=== PATIENT | female | born 1975 | race Caucasian/White ===

== ENCOUNTER 2023-10-12 08:08 | Emergency (ER) | payer OTHER, SELFPAY ==
[2023-10-12 08:15] VITALS: BP 113/71; PULSE 115; RESP 17; TEMP 36.8; O2SAT 98; BMI 20.1
--- NOTE | 2023-10-12 08:25 | ED_ITS ---
HPI - General Adult General Chief complaint: Unspecified Complaint, Adult Stated complaint: hives on face, nausea Time Seen by Provider: 10/12/23 08:14 History of Present Illness HPI narrative: Pt is on a medication she states says, she may be sensitive to potassium. She ate a banana this morning and her face broke out and she is nauseous . her breathing is fine, no issues with taking a deep breath. 48-year-old woman presenting to the emergency department with concern of a rash and likely reaction to a banana. No new medications but does take lisinopril and atorvastatin. Underlying history of CVA sometime ago. She is not having sensation of throat closure and is not having difficulty breathing. Ate a banana on her way to work today and developed this primarily facial rash including feeling nauseated mild abdominal cramps, and a little lightheaded. I note her to be tachycardic on arrival. Does have a history of apparently a similar reaction to a banana some months ago. She reports low blood pressure during that time as well. Has not taken any medication for this reaction yet today. No other exposures identified. Taste of salt also in her mouth. Does have a chronic pain and notes that her neck in particular is feeling rather tight. Related Data Home Medications ?Medication ?Instructions ?Recorded ?Confirmed estradiol 10 mcg vaginal tablet 10 mcg vaginal DAILY 10/12/23 10/12/23 (Vagifem) Allergies Allergy/AdvReac Type Severity Reaction Status Date / Time banana AdvReac Severe rash Uncoded 10/12/23 08:19 Review of Systems Status of ROS: Reports: 6 or more systems reviewed and unremarkable except as noted in History and below Exam Narrative: Exam Narrative: Pleasant. Speaking fluidly. Easily. She is breathing without difficulty and lungs are clear. There is no stridor. Oropharynx is unremarkable. Skin is warm and dry. Mild urticarial-type eruptions over her face. Not particularly well demarcated. Upper chest looks to be little involved as well. Const: Vital Signs, click to edit/add: Vital Signs - 24 hr 10/12/23 08:15 Temperature 98.3 F Pulse Rate [Right Pulse Oximeter] 115 H Respiratory Rate 17 Blood Pressure [Ri ght Upper Arm] 113/71 Pulse Oximetry 98 Oxygen Delivery Me thod Room Air Documenting provider has reviewed patient's vital signs: yes Course Vital Signs Vital signs: Initial Vital Signs Temperature 98.3 F 10/12/23 08:15 Temperature Source Temporal Artery Scan 10/12/23 08:15 Pulse Rate 115 H 10/12/23 08:15 Pulse Rhythm Regular 10/12/23 08:15 Pulse Strength 3+ Normal 10/12/23 08:15 Respiratory Rate 17 10/12/23 08:15 Blood Pressure 113/71 10/12/23 08:15 Blood Pressure Mean 85 10/12/23 08:15 Blood Pressure Position Sitting 10/12/23 08:15 Pulse Oximetry 98 10/12/23 08:15 Oxygen Delivery Method Room Air 10/12/23 08:15 Vital Signs Temperature 98.3 F 10/12/23 08:15 Pulse Rate 115 H 10/12/23 08:15 Respiratory Rate 17 10/12/23 08:15 Blood Pressure 113/71 10/12/23 08:15 Pulse Oximetry 98 10/12/23 08:15 Oxygen Delivery Method Room Air 10/12/23 08:15 Temperature 98.3 F 10/12/23 08:15 Pulse Rate 115 H 10/12/23 08:15 Respiratory Rate 16 10/12/23 09:04 Blood Pressure 103/67 10/12/23 09:04 Pulse Oximetry 98 10/12/23 09:04 Oxygen Delivery Method Room Air 10/12/23 09:04 Medications Administered Medications: Discontinued Medications Generic Name Dose Route Start Last Admin Trade Name Freq PRN Reason Stop Dose Admin Diphenhydramine HCl 50 mg 10/12/23 08:37 10/12/23 08:42 Diphenhydramine 25 Mg Capsule PO 10/12/23 08:38 50 mg ONCE ONE Administration Ibuprofen 800 mg 10/12/23 08:57 10/12/23 09:05 Ibuprofen 400 Mg Tablet PO 10/12/23 08:58 800 mg ONCE ONE Administration Ondansetron HCl 4 mg 10/12/23 08:37 10/12/23 08:42 Ondansetron Odt 4 Mg Tab PO 10/12/23 08:38 4 mg ONCE ONE Administration Prednisone 40 mg 10/12/23 09:07 10/12/23 09:13 Prednisone 20 Mg Tablet PO 10/12/23 09:08 40 mg ONCE ONE Administration Medical Decision Making MDM Narrative Medical decision making narrative: This appears to have been allergic reaction. Only consistent factor is identified as bananas. Not demonstrating a cough or other reaction that might associated with lisinopril typically. Concerning is the nausea or abdominal cramping. I did offer IV versus oral but other than some mild tachycardia does appear to be otherwise well here in the emergency department and can probably be managed orally. Ordered for diphenhydramine and Zofran. Will monitor closely. Addition yet of prednisone prior to anticipated departure. Notes marked improvement after Zofran in particular. Effect of diphenhydramine likely not seen yet. She is however having increased neck pain. Prior injury here and seems to be leading to a lot of muscle tension in the region. Requesting ibuprofen. Ordered. See patient discharge plan for further discussion Discharge Plan Discharge Clinical Impression: Allergic reaction Patient Disposition: Home, Self-Care Condition: Improved Instructions: Allergy Testing (ED) Additional Instructions: It is hard for me say that banana is not related in this apparent reaction but surely you have had it on numerous occasions in other foods since the last apparent reaction. I would appear however that you need to avoid whole bananas at this point. Might consider getting formally tested for allergies. Stay well-hydrated. Prescribing prednisone for the next 2-3 days. From [facility]. Take another dose mid afternoon and then twice daily over the following 2 days (modified from the [facility] prescription) Can take diphenhydramine for breakthrough rash or itch over the next few days. If this occurs in the future would take diphenhydramine and closely monitor. If clearly worsening or any indication of difficulty breathing, throat tightness or tightness in your chest, would present to the emergency department. Activity Level: No Restrictions Discharge Diet: Regular Prescriptions: No Action estradiol [Vagifem] 10 mcg tablet 10 mcg vaginal DAILY Follow Up/Referrals: Provider,Not a Local [Primary Care Provider] - Stand Alone Forms: [employer] Info Instructions
[2023-10-12] MEDS: diphenhydrAMINE 25 MG CAPSULE 50 MG PO (08:42)
[2023-10-12] MEDS: ONDANSETRON ODT 4 MG TAB PO (08:42)
[2023-10-12 09:04] VITALS: BP 103/67; RESP 16; O2SAT 98
[2023-10-12] MEDS: IBUPROFEN 400 MG TABLET 800 MG PO (09:05)
[2023-10-12] MEDS: predniSONE 20 MG TABLET 40 MG PO (09:13)
== END 2023-10-12 09:40 | disposition home or self-care (01) ==
PROVIDERS: Emergency Provider Family Medicine
DX: R21 Rash and other nonspecific skin eruption (principal); T78.1XXA Other adverse food reactions, not elsewhere classified, initial encounter
CPT/HCPCS: 99283; 99284; A9270; J7512

== ENCOUNTER 2024-04-26 10:58 | Emergency (ER) | payer OTHER, SELFPAY ==
[2024-04-26 11:25] VITALS: BP 128/85; PULSE 103; RESP 20; TEMP 36.9; O2SAT 98; BMI 21.4
--- NOTE | 2024-04-26 11:31 | ED.GENADULT ---
HPI - General Adult General Chief complaint: Neck Injury/Pain Stated complaint: WC - box fell on head/neck Time Seen by Provider: 04/26/24 11:31 History of Present Illness HPI narrative: hx of neck injury had injection on wednesday and neck was finally feeling good since injuy in 2017. 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 pain to both sides of neck and running up back of neck. sent here from urgent care. 49-year-old woman presenting to the emergency department with concern of severe neck pain. Has struggled with chronic neck pain finally receiving an injection 2 days ago and was feeling improved. I believe has a C2 area disc herniation. This morning in her work capacity in this facility a 30 lb box fell onto the upper posterior aspect of her head causing her to flex her neck forward. There was no loss of consciousness. Per recommendations by health insurance was directed to urgent care initially who directed her back to the emergency department. She is having intense pain along both sides of her neck and is very disappointed in these developments considering recent improvement. She is not experiencing radicular symptoms into her arms. Related Data Home Medications ?Medication ?Instructions ?Recorded ?Confirmed aspirin 81 mg tablet,delayed 81 mg PO QDAY 04/26/24 04/26/24 release atorvastatin 20 mg tablet 20 mg PO DAILY 04/26/24 04/26/24 lisinopril 20 1 tab PO DAILY 04/26/24 04/26/24 mg-hydrochlorothiazide 25 mg tablet Previous Rx's ?Medication ?Instructions ?Recorded hydrocodone 5 mg-acetaminophen 325 1 - 2 tab PO Q4-6H PRN pain #8 tabs 04/26/24 mg tablet prednisone 20 mg tablet 40 mg (2 x 20 mg) PO DAILY 5 days 04/26/24 #10 tabs Allergies Allergy/AdvReac Type Severity Reaction Status Date / Time banana AdvReac Severe rash Uncoded 04/26/24 10:40 Review of Systems Status of ROS: Reports: 6 or more systems reviewed and unremarkable except as noted in History and below Exam Narrative: Exam Narrative: Pleasant. Clearly very uncomfortable. Transitioning stiffly. Cranial nerves 2-12 intact. Pupils are equal. Negative Tavares sign. No fluid apparent at external ear canals. Paracervical musculature is tense into the trapezius. Not with significant midline neck pain or upper back pain. Puncture site of injection is evident at around C6 without surrounding inflammatory changes or swelling. Pain with attempted rotation of the neck Const: Vital Signs, click to edit/add: Vital Signs - 24 hr 04/26/24 11:25 Temperature 98.4 F Pulse Rate [Pulse Oximeter] 103 H Respiratory Rate 20 Blood Pressure [Ri ght Upper Arm] 128/85 Pulse Oximetry 98 Oxygen Delivery Me thod Room Air Documenting provider has reviewed patient's vital signs: yes Course Vital Signs Vital signs: Initial Vital Signs Temperature 98.4 F 04/26/24 11:25 Temperature Source Temporal Artery Scan 04/26/24 11:25 Pulse Rate 103 H 04/26/24 11:25 Respiratory Rate 20 04/26/24 11:25 Blood Pressure 128/85 04/26/24 11:25 Blood Pressure Mean 99 04/26/24 11:25 Blood Pressure Position Sitting 04/26/24 11:25 Pulse Oximetry 98 04/26/24 11:25 Oxygen Delivery Method Room Air 04/26/24 11:25 Vital Signs Temperature 98.4 F 04/26/24 11:25 Pulse Rate 103 H 04/26/24 11:25 Respiratory Rate 20 04/26/24 11:25 Blood Pressure 128/85 04/26/24 11:25 Pulse Oximetry 98 04/26/24 11:25 Oxygen Delivery Method Room Air 04/26/24 11:25 Temperature 98.4 F 04/26/24 11:25 Pulse Rate 103 H 04/26/24 11:25 Respiratory Rate 20 04/26/24 11:25 Blood Pressure 128/85 04/26/24 11:25 Pulse Oximetry 98 04/26/24 11:25 Oxygen Delivery Method Room Air 04/26/24 11:25 Medical Decision Making MDM Narrative Medical decision making narrative: I would suspect primarily secondary muscle spasm from cervical strain. I would suspect that x-ray imaging would be of low use. Without radicular symptoms probably does not need MRI. Intensity of symptoms and history I think would warrant CT imaging. I do not think needs head imaging. She would prefer to defer pain management at this time partly with need to drive. TECHNIQUE: Multiplanar CT examination of the cervical spine was performed without the use of intravenous contrast. INDICATION: Neck pain. Trauma. COMPARISON: None. FINDINGS: Nonspecific reversal of the normal cervical lordosis. No craniocervical dissociation. The vertebral body heights are maintained. No acute fractures or traumatic subluxation. The odontoid process is intact. Multilevel degenerative disc disease, severe C5-6 and C6-7. There is grade 1 degenerative anterolisthesis of C3 on C4. Mild degenerative retrolisthesis of C5 on C6. No high-grade stenosis of the osseous spinal canal. Multilevel facet degeneration, advanced at the left C3-4 facet joint. There is likely moderately severe stenosis of the left C3-4 neural foramina. No large abnormal epidural collections identified. No significant prevertebral soft tissue edema. The visualized lung apices are clear. The thyroid gland is unremarkable. IMPRESSION: 1. No acute fracture or traumatic subluxation of the cervical spine. 2. Multilevel cervical spondylosis, with likely moderately severe left C3-4 neural foraminal stenosis. Did review findings of CT imaging with Ms. Bruce. Discussed options for pain management. See patient discharge plan for further discussion I am sorry this happened to you. I hope the injection continues to take hold. I appreciate that you prefer not to take medications. Consider taking ibuprofen or acetaminophen for pain. Might be good to take 1 of these regularly over the next couple of days. Otherwise prescribing a course of prednisone and [place] if needed for further pain. Medical Records Medical records reviewed: Yes I reviewed the patient's medical records Discharge Plan Discharge Clinical Impression: Cervicalgia, Neck strain, Closed head injury Patient Disposition: Home, Self-Care Condition: Stable Additional Instructions: I am sorry this happened to you. I hope the injection continues to take hold. I appreciate that you prefer not to take medications. Consider taking ibuprofen or acetaminophen for pain. Might be good to take 1 of these regularly over the next couple of days. Otherwise prescribing a course of prednisone and [place] if needed for further pain. Prescriptions: New prednisone 20 mg tablet 40 mg PO DAILY 5 Days Qty: 10 0RF hydrocodone-acetaminophen 5-325 mg tablet 1 - 2 tab PO Q4-6H PRN (Reason: pain) Qty: 8 0RF No Action atorvastatin 20 mg tablet 20 mg PO DAILY lisinopril-hydrochlorothiazide 20-25 mg tablet 1 tab PO DAILY aspirin 81 mg tablet,delayed release (DR/EC) 81 mg PO QDAY Follow Up/Referrals: Provider,Not a Local [Primary Care Provider] - Stand Alone Forms: [employer] Info Instructions
--- NOTE | 2024-04-26 12:04 | PC.NURSE ---
Spoke with [employer] Larry at risk management for [facility] regarding Workers comp forms. Patient gave staff here a Workers comp form which requires and instant 10-panel drug screen and breath alcohol test. Notified [employer] that we do not perform breathalyzers here and that we do not have a contract with [facility] to do urine drug screens. Asked if they were able to send their own kit and paperwork to perform this test on patient. Per [employer], no need to perform test if supplies are unavailable. Per [employer], Patient can disregard those tests and just take care of herself. We will take care of paperwork later. Patient was notified of this. Patient did not appear to be under the influence during this visit.
--- OUTSIDE RECORDS SUMMARY | 2024-04-26 15:39 | XMS_ITS | Clinical Summary ---
Author Organization [facility] Address [address] [place] [address] Care Team Providers Care Audio/Video Technician Name Role Phone Hillary Gregg MD Primary Care Provider [phone] Source Comments You are receiving this document as you are listed as the primary care provider,follow-up provider, or the patient has been referred to you for consultation.This is in compliance with the Medicare and[facility] EHR Incentive Program,which states Providers who transition their patient to another setting of careor provider of care or refers their patient to another provider of care shouldprovide summary care record for each transition of care or referral. [facility] Allergies No known active allergies Medications Medication Sig Dispensed Refills Start Date End Date Status XEOMIN 100 units SOLR Inject 100 units of Xeomin IM every 90 days for dx: Cervical Dystonia with 1 refill 1 Each 1 12/03/2021 Active Additional Information Patient not taking.Reported on 02/16/2022 gabapentin (NEURONTIN) 100 MG capsule Take 1 Capsule (100 mg) by mouth daily at bedtime. For 2-3 weeks, may increase to 2 caps PO QHS thereafter. 60 Capsule 3 02/16/2022 Active gabapentin (NEURONTIN) 300 MG capsule Take 1 Capsule (300 mg) by mouth daily at bedtime. 30 Capsule 03/02/2023 Active magnesium oxide (MAG-OX) 400 MG tablet Take 1 Tablet (400 mg) by mouth daily. Active drug not in computer Odalis supplement Active aspirin (ASPIRIN LOW DOSE) 81 MG chewable tablet Chew and swallow 1 Tablet (81 mg) by mouth daily. 90 Tablet 05/17/2023 Active atorvastatin (LIPITOR) 20 MG tablet TAKE 1 TABLET BY MOUTH EVERY DAY 90 Tablet 3 06/15/2023 Active estradiol 10 MCG TABS vaginal tablet Use 1 tab nightly for 6 weeks then 2-3x/week from there Do not start before July 01, 2023. 90 Tablet 3 07/01/2023 Active lisinopril-hydroCHL OROthiazide (PRINZIDE) 20-25 MG tabletIndications:E ssential hypertension (HRC) take 1 tablet by mouth every day 90 Tablet 2 09/10/2023 Active venlafaxine (EFFEXORXR) 37.5 MG 24 hour release capsule take 1 capsule by mouth every day 90 Capsule 09/08/2023 Active Active Problems Problem Noted Date Diagnosed Date Essential hypertension 12/23/2020 Other hyperlipidemia 12/23/2020 Cervical spine pain 05/23/2019 History of embolic stroke 05/29/2015 Immunizations Name Administration Dates Next Due Fluzone Qiv Multidose Vial 0.25 (6-35 Mos) 12/25 Influenza IIV4 (Quadrivalent) 0.5mL (31072) 12/29,12/24/2021,04/27/2019 Donovan COVID-19 Vaccine 11/01/2020 Pfizer Bivalent 12+ 12/24/2021 Pfizer COVID-19 12+ 01/25/2023 Pfizer Monovalent 12+ Purple Top 04/11/2021 Family History Medical History Relation Name Comments Cancer, Cervical Maternal Grandmother Relation Name Status Comments Maternal Grandmother Social History Tobacco Use Types Packs/Day Years Used Date Smoking Tobacco: Never Smokeless Tobacco: Never Alcohol Use Standard Drinks/Week Comments Yes 0 (1 standard drink = 0.6 oz pur e alcohol) Social PHQ-2 Answer Date Recorded PHQ-2 Score 0 01/30/2019 Sex and Gender Information Value Date Recorded Sex Assigned at Not on file Gender Identity Not on file Sexual Orientation Not on file Last Filed Vital Signs Vital Sign Reading Time Taken Comments Blood Pressure 122/76 06/14/2023 2:30 PM CDT Pulse 83 06/14/2023 2:30 PM CDT Temperature 38.1 C (100.6 F) 03/02/2023 8:04 AM FINISH OFF OPERATOR Respiratory Rate 22 03/02/2023 8:04 AM FINISH OFF OPERATOR Oxygen Saturation 97% 03/02/2023 8:04 AM FINISH OFF OPERATOR Inhaled Oxygen Concentration - - Weight 67.6 kg (149 lb) 06/14/2023 2:30 PM CDT Height 175.3 cm (5' 9) 05/14/2023 2:44 PM FINISH OFF OPERATOR Body Mass Index 22 05/14/2023 2:44 PM FINISH OFF OPERATOR Plan of Treatment Health Maintenance Due Date Last Done Comments Colon Cancer Screening Plan Due 1974 Hep C Screening (Preventive Services) 1974 HIV Screening (Preventive Services) 1990 DTaP/Tdap/Td (1 - Tdap) 1993 HepB (1) 1993 Adult Preventive Visit 02/16/2023 02/16/2022, 2019 Mammogram 03/03/2023 03/03/2022, 03/15/2020 COVID-19 Vaccine ( season) 2023 01/25/2023, 12/24/2021, 04/11/2021, Additional history exists Influenza (#1) 2023 01/25/2023, 11/28, 12/25/2020, Additional history exists Zoster/Shingles (1 of 2) 02/08/2024 Cervical Cancer Screening 09/18/2024 09/19/2019 Cholesterol 05/14/2028 05/14/2023, 04/30, 08/15/2019 HepA Aged Out No longer eligi ble based on patient's age to complete this topic Hib Aged Out No longer eligi ble based on patient's age to complete this topic IPV (Polio) Aged Out No longer eligi ble based on patient's age to complete this topic MCV4 Aged Out No longer eligi ble based on patient's age to complete this topic Pneumococcal Aged Out No longer eligi ble based on patient's age to complete this topic Procedures Procedure Name Priority Date/Time Associated Diagnosis Comments LIPID PANEL & DIRECT LDL (IF NEEDED) Routine 05/14/2023 3:40 PM FINISH OFF OPERATOR Other hyperlipidemia MM MAMMOGRAM SCREENING BILAT W IMPLANTS W 3D TI W CAD Routine 03/03/2022 2:57 PM FINISH OFF OPERATOR Encounter for screening mammogram for malignant neoplasm of breast PAP TEST Routine 09/19/2019 2:45 PM CDT Screening for malignant neoplasm of cervix from Last 3 Months or Most Recently Relevant to Health Maintenance Results * (ABNORMAL) Lipid Panel and Direct LDL(If Needed) (05/14/2023 3:40 PM FINISH OFF OPERATOR) Cholesterol 232(H) 0 - 199 mg/dL 05/14/2023 7:06 PM FINISH OFF OPERATOR [facility] Triglyceride 106 <=149 mg/dL 05/14/2023 7:06 PM [facility] HDL Cholesterol 78 >=40 mg/dL 05/14/2023 7:06 PM FINISH OFF OPERATOR [facility] LDL, Calculated 133(H) <130 mg/dL 05/14/2023 7:06 PM [facility] Non HDL Chol, Calculated 154 <=159 mg/dL 05/14/2023 7:06 PM [facility] Cholesterol/HDL Ratio 3.0 <=5.0 05/14/2023 7:06 PM [facility] Hours Fasting 0.1 8 - 12 Hours 05/14/2023 7:06 PM FINISH OFF OPERATOR [facility] Blood Venipuncture / Unknown 05/14/2023 3:40 PM FINISH OFF OPERATOR 05/14/2023 3:40 PM FINISH OFF OPERATOR Hillary Gregg MD LAB_1 Performing Organization Address City/State/[facility] Co de Phone Number [facility] [address] [place] [address] * MM Mammogram Screening Bilat W Implants W 3D Ti W CAD (03/03/2022 2:57 PM FINISH OFF OPERATOR) Anatomical Region Laterality Modality Breast Bilateral Mammography Impressions 03/03/2022 4:29 PM FINISH OFF OPERATOR : ACR BI-RADS Category 2: Benign RECOMMENDATION: Follow Up Imaging in 12 months - Bilateral The results and recommendations of this examination will be communicated to the patient. Narrative 03/03/2022 4:29 PM FINISH OFF OPERATOR MM MAMMOGRAM SCREENING BILAT W IMPLANTS W 3D TI W CAD performed on 03/03/22 Compared to: 03/15/2020 MM Mammogram Screening Bilat W Implants W 3D Ti W CAD FINDINGS: Bilateral screening mammogram was performed with the assistance of Computer-Aided Detection and breast tomosynthesis. The breasts have scattered areas of fibroglandular density. There are findings of breast augmentation. There is no radiographic evidence of malignancy. Hillary Gregg MD RAD KIMBER * PAP Test (09/19/2019 2:45 PM CDT) Case Report Pap Case: [id number] Authorizing Provider: Chanel Cheema MD Collected: 09/19/2019 02:45 PM Ordering Location: [facility] Received: 09/19/2019 02:50 PM Practice First Screen: Katya Garcia Specimen: Pap Test, Routine, Cervix/Endocervix 09/27/2019 9:49 AM [facility] Pap Specimen Adequacy Satisfactory for evaluation, endocervical/graham sformation zone component present. 09/27/2019 9:49 AM [facility] Pap Interpretation Negative for intraepithelial lesion or malignancy (NILM). 09/27/2019 9:49 AM [facility] Pap Disclaimer The Pap test is a screening test designed to aid in the detection of cervical cancer and its precursor lesions. It is not a diagnostic procedure and should not be used as the sole means of detecting cervical cancer. Both false-positive and false-negative results may occur. 09/27/2019 9:49 AM [facility] Gross Description The specimen is received in SurePath fixative and properly labeled. 1 Pap-stained SurePath slide is prepared. 09/27/2019 9:49 AM [facility] Embedded Images 0 9:49 AM [facility] Other Specimen Type ENTIRE ENDOCERVIX / Unknown 09/19/2019 2:45 PM CDT 09/19/2019 2:50 PM CDT Comment:LMP: No LMP recorded . Chanel Cheema MD LAB PATHOLOGY [address] [address], [facility] [phone] from Last 3 Months or Most Recently Relevant to Health Maintenance Care Teams Audio/Video Technician Relationship Specialty [place] [address] [place] [address] PCP - General Family Practice 09/13/19
--- OUTSIDE RECORDS SUMMARY | 2024-04-26 15:39 | XMS_ITS | Clinical Summary ---
Author Organization [facility] Address [place], [place] [address] Care Team Providers Care Peace Officer Name Role Phone Ananya Solano MD Primary Care Provider [phone] Allergies No known active allergies Medications aspirin 325 mg tablet Take 1 tablet by mouth once daily with a meal. 1 tablet 0 3 Active ferrous sulfate, 65 mg elemental, tabletIndications: Excessive bleeding in premenopausal period Take 1 tablet by mouth once daily with a meal. 90 tablet 8 Active lisinopril-hydroch lorothiazide, 20-25 mg, (PRINZIDE, ZESTORETIC) 20-25 mg per tabletIndications: Cerebral infarction, unspecified mechanism (HC) TAKE 1 TABLET BY MOUTH EVERY DAY 30 tablet 0 Active atorvastatin (LIPITOR) 10 mg tabletIndications: Cerebral infarction, unspecified mechanism (HC) Take 1 tablet by mouth at bedtime. 90 tablet 0 Active Active Problems Problem Noted Date Diagnosed Date History of embolic stroke 05/29/2015 Resolved Problems Problem Noted Date Diagnosed Date Resolved Date Excessive bleeding in premenopausal period 05/29/2015 01/03/2020 History of 05/29/2015 020 Overview (05/29/2015): x2 CVA (cerebral infarction) 03/22/2013 Family History Medical History Relation Name Comments Good Health Brother good health Stroke Father Cancer Maternal Grandfather brain Cancer Maternal Grandmother cervica l Heart Disease Mother 2 heart valves replaced - on coumadin Unknown Paternal Grandfather Relation Name Status Comments Brother Alive Father Alive Maternal Grandfather Maternal Grandmother Mother Alive Paternal Grandfather Paternal Grandmother Social History Tobacco Use Types Packs/Day Years Used Date Smoking Tobacco: Never Smokeless Tobacco: Never Tobacco Cessation:Counseling Given: Yes Alcohol Use Standard Drinks/Week Comments Yes 0 (1 standard drink = 0.6 oz pur e alcohol) social PHQ-2 Answer Date Recorded PHQ-2 Score 0 05/30/2018 Social Connections Answer Date Recorded Frequency of Communication with Friends and Fami ly Not on file 03/28/2021 Financial Resource Strain Answer Date R ecorded Difficulty of Paying Living Expenses Not on file 03/28/2021 Difficulty of Paying Living Expenses Not on file 03/28/2021 Comments No Sex and Gender Information Value Date Recorded Sex Assigned at Not on file Legal Sex Female 6:29 AM SCREEN VENT BINDER Gender Identity Not on file Sexual Orientation Not on file 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 Not on file Not on file Not on file Obstetrics History Para Term AB IAB SAB Ectopic Multiple Livin g Live Births 2 2 2 Date Outcome GA Total Labor Labor/2nd/3rd Weight Sex Type Anes PTL Amanda A1 A5 Name Clin 1998 CS-LT ranv Living 2 CS-LT ranv Living Last Filed Vital Signs Vital Sign Reading Time Taken Comments Blood Pressure 120/74 11/01/2018 1:43 PM CDT Pulse 92 03/08/2018 2:40 PM SCREEN VENT BINDER Temperature 36.6 C (97.8 F) 03/08/2018 2:40 PM SCREEN VENT BINDER Respiratory Rate 18 03/24/2013 8:00 AM SCREEN VENT BINDER Oxygen Saturation 98% 03/24/2013 8:00 AM SCREEN VENT BINDER Inhaled Oxygen Concentration - - Weight 63.5 kg (140 lb) 11/01/2018 1:43 PM CDT Height 177.8 cm (5' 10) 11/01/2018 1:44 PM CDT Body Mass Index 20.09 11/01/2018 1:43 PM CDT Plan of Treatment Health Maintenance Due Date Last Done Comments Tdap 1985 HIV for age 15-65 1989 Hepatitis C screening for age 18-79 02/08/1992 Colonoscopy through age 75 2019 Mammogram for age 45-75 2019 BMI (ht and wt on same day) for age 18+ 03/08/2019 03/08/2018, 12/28/2017, 07/22/2017, Additional history exists Depression screening for age 12+ 03/09/2019 03/09/2018, 03/08/2018, 07/22/2017, Additional history exists Pap test for age 21-65 07/22/2022 8, 07/22/2017, 01/13/2016 (Completed outside of [facility]) Lipids for age 45-75 12/28/2022 12/28/2017, 07/14/2016, 03/23/2013 COVID-19 vaccine series (2023- season) 2023 04/11/2021, 11/01/2020 Influenza for age 50-64 02/08/2024 Pneumococcal series for age 50+ (1 of 1 - PCV) 02/08/2024 Zoster (shingles) series for age 50+ (1 of 2) 02/08/2024 Tetanus booster 12/03/2024 12/03/2014 (Comp leted outside of [facility]) Pneumococcal series for age 6-49 Aged Out No longer eligible based on patient's age to complete this topic Procedures Procedure Name Priority Date/Time Associated Diagnosis Comments LIPID PANEL W REFLEX MEASURED LDL Routine 12/28/2017 4:13 PM CDT Hypertension, unspecified type MILLER HEAD THIN PREP PAP SCREEN IMAGED Routine 07/22/2017 9:00 AM CDT Irregular periods/menstrual cycles Menorrhagia with irregular cycle from Last 3 Months or Most Recently Relevant to Health Maintenance Results * (ABNORMAL) LIPID PANEL W REFLEX MEASURED LDL (12/28/2017 4:13 PM CDT) CHOLESTEROL,TOTAL 219(H) 100 - 199 mg/dL 12/29/2017 1:52 PM CDT [facility] [employer] [facility] TRIGLYCERIDES 66 <150 mg/dL 12/29/2017 1:52 PM CDT [facility] [employer] [facility] HDL CHOLESTEROL 98 >40 mg/dL 8 1:52 PM CDT [facility] [employer] [facility] NON-HDL CHOLESTEROL 121 <145 mg/dl 12/29/2017 1:52 PM CDT [facility] CHOL/HDL RATIO 2.23 <4.50 12/29/2017 1:52 PM CDT [facility] LDL CHOLESTEROL 108 <=130 mg/dL 12/29/2017 1:52 PM CDT [facility] PROVIDER ORDERED STATUS RANDOM 12/29/2017 1:52 PM CDT [facility] Blood BLOOD SPECIMEN / Unknown Venipuncture / Unknown 12/28/2017 4:13 PM CDT 12/28/2017 4:13 PM CDT us Ananya Solano MD CHEMISTRY Final Res ult [facility] [address] [place] [address], [place] * MILLER HEAD THIN PREP PAP SCREEN IMAGED (07/22/2017 9:00 AM CDT) Case Report Gynecologic Cytology Report Case: [id number] Authorizing Provider: Landy Obregon MD Collected: 07/22/2017 0900 Ordering Location: [facility] Received: 07/22/2017 0922 Clinic First Screen: Scott Marquis Pathologist: Sharon Ward MD Specimen: MILLER HEAD ThinPrep Vial Screening, Cervical 07/30/2017 8:55 AM CDT [facility] INTERPRETATION/ RESULT NEGATIVE FOR INTRAEPITHELIAL LESION OR MALIGNANCY (NIL) (none) 07/30/2017 8:55 AM CDT [facility] R NON-NEOPLASTIC FINDING(S) Parakeratosis 07/30/2017 8:55 AM CDT [facility] SPECIMEN ADEQUACY Satisfactory for evaluation Endocervical component present 07/30/2017 8:55 AM CDT [facility] HPV REQUEST HPV and PAP 07/30/2017 8:55 AM CDT [facility] Date of LMP 07/17/17 07/30/2017 8:55 AM CDT [facility] Last Pap Date 5+ years 07/30/2017 8:55 AM CDT [facility] Last Pap Result NIL 8:55 AM CDT [facility] Abnormal Pap or [place] Bx in last 5 years No 07/30/2017 8:55 AM CDT [facility] Menstrual Status Irregular Periods 07/30/2017 8:55 AM CDT [facility] [place] Bx Done Today No 07/30/2017 8:55 AM CDT [facility] Additional Information None given 07/30/2017 8:55 AM CDT [facility] Automated Review Successful 07/30/2017 8:55 AM CDT [facility] Comment:Specimen processed s uccessfully by automated compliance engineer device, [employer] System, [employer] ANCILLARY TESTING MILLER HEAD HPV Ordered, Please see separate report 07/30/2017 8:55 AM CDT [facility] Note The pap test is a screening technique, not a diagnostic procedure. It is used primarily to screen for squamous cancers and precursor lesions. Published studies have shown that it is subject to both false negative and false positive results. The pap test should not be used as the sole means to diagnose or exclude pre-malignant and malignant lesions. Interpreted at [facility] ([facility], [facility], [facility], [facility], [facility], [facility], [facility]) 07/30/2017 8:55 AM CDT [facility] Other (Cervical) Non-Blood / Unknown 07/22/2017 9:00 AM CDT 07/22/2017 9:22 AM CDT us Landy Obregon MD PATHOLOGY/CYTOLOGY Final Result [facility] [address] [place] [address], [place] from Last 3 Months or Most Recently Relevant to Health Maintenance Advance Directives * Full Code (Latest Code Status on File) Date Activated Date Inactivated Comments 03/22/2013 7:11 PM 03/24/2013 4:08 PM Care Teams Peace Officer Relationship Specialty Start Date End Date Ananya Solano MD PCP - General Family Practice 07/16/16
--- OUTSIDE RECORDS SUMMARY | 2024-04-26 15:39 | XMS_ITS | Continuity of Care Document ---
Author Organization [facility] Address [address] [place] [address] Phone Care Team Providers Care Hospital Unit Clerk Name Role Phone Will MD TIJERINA, Carlos Unavailable Unavailabl e Advance Directives Directive Yes / No Effective Date File Name No Information Encounters Encounter Description Practice Location Reason(s) For Visit Diagnoses Date Provider Providers Copied on Encounter [facility], [address] [place] [address], [id number], [place] tel:[phone] [facility] [place] No Information Will Carlos. [address] [facility] [place], [place], [id number], [place]. tel:[phone] Family History Family Member Type Diagnosis Age At Onset No Information Payers Payer name Insurance type Covered alliance party ID Authoriza tion(s) No Information Social History Type Description Quantity Date Captured Comments Sex Female Smoking Status No Information Chief Complaint And Reason For Visit No Information Reason For Referral Reason For Referral No Information History Of Present Illness Encounter Date Complaint History Of Prese nt Illness No Information Functional Status Date Functional Assessmen t No Information Instructions Date Instruction Additional Infor mation No Information Assessments Type Assessment Date No Information Patient Care Teams Name Effective Dates (start - stop) Status Members No Information
== END 2024-04-26 13:37 | disposition home or self-care (01) ==
PROVIDERS: Emergency Provider Family Medicine
DX: S16.1XXA Strain of muscle, fascia and tendon at neck level, initial encounter (principal); W22.8XXA Striking against or struck by other objects, initial encounter; Y99.0 Civilian activity done for income or pay
CPT/HCPCS: 72125; 99283; 99284